=== PATIENT | male | born 1960 | race Caucasian/White ===

== ENCOUNTER 2023-09-13 05:53 | Observation (INO) ==
[~2023-09-13 05:53] MED LIST: Buffered Lidocaine 1% SYRIN 1 ml INTRADERM ONE; Lactated Ringers 1000 ml BAG 1,000 ML IV SCH
[2023-09-13] MEDS ORDERED: ceFAZolin 2 GM in NS PREMIX 2 GM/100 ML BAG IVPB ONE (06:17)
[2023-09-13 06:35] LABS: Rapid COVID-19 Molecular Undetected (Undetected)
[2023-09-13] MEDS ORDERED: Lidocaine 2% JELLY 10 ML JELLY ONE (06:49)
[2023-09-13] MEDS ORDERED: Bupivacaine 0.5% SDV PF 30ML VIAL ONE (06:49)
[2023-09-13] MEDS ORDERED: Lidocaine 2% PF 5 ML VIAL ONE (06:53)
[2023-09-13] MEDS ORDERED: Sevoflurane BOTTLE ONE (06:53)
[2023-09-13] MEDS ORDERED: Midazolam 2 mg/2 ml VIAL 1 mg/ml 2 ml VIAL (2 mg) ONE (06:54)
[2023-09-13] MEDS ORDERED: Glycopyrrolate IV 0.2 MG/ML 1 ML VIAL ONE (06:54)
[2023-09-13] MEDS ORDERED: fentaNYL 250 mcg/5 ml 50 MCG/ML 5 ml VIAL (250 MCG) ONE (06:55)
[2023-09-13] MEDS ORDERED: Dexmedetomidine 200 mcg/2 ml 2 ml VIAL (200 mcg) ONE (06:57)
[2023-09-13] MEDS ORDERED: Rocuronium 50 mg VIAL 10 mg/ml 5 ml VIAL (50 mg) ONE (07:01)
[2023-09-13] MEDS ORDERED: Bupivacaine 0.25% SDV 30 ML ONE (07:08)
[2023-09-13] MEDS ORDERED: HYDROmorphone 1 MG/1 ML SYRINGE IV PRN (07:24)
[2023-09-13] MEDS ORDERED: fentaNYL 100 mcg/2 ml 50 MCG/ML VIAL IV PRN (07:24)
[2023-09-13] MEDS ORDERED: Ondansetron 4 mg VIAL 2 MG/ML 2 ml VIAL IV PRN ×2 (07:24→07:27)
[2023-09-13] MEDS ORDERED: Naloxone 0.4 mg VIAL 0.4 mg/ml 1 ml VIAL IV PRN (07:24)
[2023-09-13] MEDS ORDERED: BUPIVACAINE **LIPOSOME/PF 13.3 MG/ML (266MG/ 20ML) VIAL (RESTRICTED) INFIL ONE (07:30)
[2023-09-13] MEDS ORDERED: Dexamethasone IV 4 MG/ML VIAL 1 ml VIAL ONE (08:27)
[2023-09-13] MEDS ORDERED: Ondansetron 4 mg VIAL 2 MG/ML 2 ml VIAL ONE (08:27)
[2023-09-13] MEDS ORDERED: HYDROmorphone 0.5 MG/0.5 ML SYRINGE ONE (08:39)
[2023-09-13] MEDS ORDERED: Sugammadex 500 MG/5 ML 5 ml VIAL IV PUSH ONE (09:23)
[2023-09-13] MEDS ORDERED: Phenylephrine 40 mcg/mL 10mL (400mcg) SYRINGE ONE (09:56)
[2023-09-13] MEDS ORDERED: fentaNYL 100 mcg/2 ml 50 MCG/ML VIAL ONE (10:26)
[2023-09-13 11:52] LABS: ABS Lymphocytes 0.4 10^3/uL (1.0-4.8); ABS Monocytes 0.3 10^3/uL (0.0-1.1); ABS Neutrophils 9.8 10^3/uL (1.5-7.6); ABS Nucleated RBC 0.03 10^3/ul; Eosinophil % 0.4 %; Hematocrit 43.5 % (38-53); Hemoglobin 14.9 g/dL (13.2-16.3); Lymphocyte % 3.5 %; Mean Corpuscular Hemoglobin 31.3 pg (27-33); Mean Corpuscular Hgb Conc 34.4 g/dL (31-36); Mean Corpuscular Volume 91.2 fL (80-97); Mean Platelet Volume 6.8 fL (7.5-11.2); Nucleated Red Blood Cells % 0.3 %/100WBC (0.0-0.8); Platelet Count 254 10^3/uL (150-450); Red Blood Count 4.77 10^6/uL (4.06-5.63); Red Cell Distribution Width 12.1 % (12-17); White Blood Count 10.5 10^3/uL (3.6-10.2)
[2023-09-13 12:10] LABS: Calcium 8.4 mg/dL (8.6-10.3); Creatinine, Serum 1.22 mg/dL (0.67-1.17); Potassium 4.6 mmol/L (3.5-5.0); eGFR CKD-EPI 66.6 (>60)
[2023-09-13] MEDS: Magnesium Hydroxide LIQ 30 ML UDC PO SCH ×2 (12:21→20:10)
[2023-09-13] MEDS: Neomycin/Polym/Bacit TOP OINT 15 GM TOPICAL SCH ×5 (12:21→20:11)
[2023-09-13] MEDS: NS 0.9% 1000 ml BAG 1,000 ML IV SCH ×2 (12:39→20:39)
[2023-09-14] MEDS: NS 0.9% 1000 ml BAG 1,000 ML IV SCH (04:34)
[2023-09-14 08:17] LABS: ABS Lymphocytes 0.6 10^3/uL (1.0-4.8); ABS Neutrophils 9.8 10^3/uL (1.5-7.6); ABS Nucleated RBC 0.01 10^3/ul; Hematocrit 37.7 % (38-53); Hemoglobin 12.9 g/dL (13.2-16.3); Lymphocyte % 5.3 %; Mean Corpuscular Hemoglobin 31.3 pg (27-33); Mean Corpuscular Hgb Conc 34.2 g/dL (31-36); Mean Corpuscular Volume 91.4 fL (80-97); Mean Platelet Volume 6.8 fL (7.5-11.2); Platelet Count 249 10^3/uL (150-450); Red Blood Count 4.13 10^6/uL (4.06-5.63); White Blood Count 11.4 10^3/uL (3.6-10.2)
[2023-09-14 08:35] LABS: Calcium 7.6 mg/dL (8.6-10.3); Creatinine, Serum 1.48 mg/dL (0.67-1.17); Potassium 4.2 mmol/L (3.5-5.0); eGFR CKD-EPI 52.8 (>60)
[2023-09-14] MEDS: Magnesium Hydroxide LIQ 30 ML UDC PO SCH (08:39)
[2023-09-14] MEDS: Neomycin/Polym/Bacit TOP OINT 15 GM TOPICAL SCH (08:39)
[2023-09-14 10:14] VITALS: BP 102/63
== END 2023-09-14 11:45 | disposition home or self-care (01) ==
LOC: OR 05:53 → SSU 05:53
PROVIDERS: ADMIT Urology; ATTEND Urology